=== PATIENT | female | born 1945 | race Caucasian/White ===

== ENCOUNTER → 2017-12-15 | Outpatient (CLI) | payer OTHER | END | disposition home or self-care (01) | LOC: MAMMO 13:26 | DX: Z12.31 Encounter for screening mammogram for malignant neoplasm of breast (principal) | CPT/HCPCS: 77063; 77067 ==

== ENCOUNTER → 2018-06-29 | Outpatient (CLI) | payer OTHER ==
--- NOTE | 2018-06-29 11:08 | RAD ---
MR#: [id number] Date of Study: 06/29/2018 Ordering Physician: ASAEL BRONSON, Referring Physician: RAMA SARAVIA Tech: KERI Agarwal APPROVED REPORT Test Type: Exercise Stress Nurse/Tech: Maday Amezquita R.N. Test Indications: SOB, c/p x 6 months Cardiac History: htn, asthma, DM Medications: See Electronic Medical Record Medical History: See Electronic Medical Record Resting ECG: SR Resting Heart Rate: 75 bpm Resting Blood Pressure: 141/77mmHg Pretest Chest Pain: Typical angina Nurse/Tech Notes S1S2, lungs CTA, pt states she has a little chest pain right in the center of her chest Consent: The procedure was explained to the patient in lay terms. Informed consent was witnessed. Jonathan eout was entered into [facility]. History and Stress Test performed by Joycelyn Gaxiola, RT (R) (N) Stress Symptoms fatigue, SOB, increased chest pain to moderate with activity but back down to baseline of a little by the end of recovery period POST EXERCISE Reason for Termination: Reached target heart rate Target HR: Yes Max HR: 128 bpm 100% of Maximum Predicted HR: 127 bpm Exercise duration: 4:42 min:sec, 1 Stage Exercise capacity: 7.3METs Max Blood Pressure: 190/80mmHg Blood Pressure response to exercise: Normal blood pressure response during stress. Heart Rate response to exercise: wnl Chest Pain: Yes. increased pain from baseline to moderate pain Arrhythmia: No. ST Change: Yes. scant St depression in leads II,III, AVF, V3-V6 > 1MM, scant ST elevation in lead AVR INTERPRETATION Stress EKG Conclusion: Baseline EKG showed sinus rhythm. Non diagnostic changes at peak stress. No arrhythmias. Imaging Protocol IMAGE PROTOCOL: Rest Tc-99m/stress Tc-99m 1 day Rest: Stress: Viability: Radiopharm.Tc99m DsmzhatiwUp14v Sestamibi Dose11.6mCi 33.2mCi Duration 15min. 13min. Img Date 06/29/2018 06/29/2018 Inj-Img Brsk50dhn. 60min. Post-Injection Exercise: 1 minute Rest Admin Site:IV - Right AntecubitalAdministrator:MATTEO Slaughter, ARRT (R)(N) Stress Admin Site: IV - Right AntecubitalAdministrator: MATTEO Slaughter, ARRT (R)(N) STRESS DATA End Diast. Vol.65.0mlLVEDV index BSA35.0ml End Syst. Vol.18.0mlLVESV index BSA10.0ml Myocardial Tmqu279.0gEject. Efylmosv93.0% Stress Scores Regional WT1.00Summed WT5.00 Regional WM0.00Summed WM0.00 Study quality was good. Left Ventricular size was Normal at Rest and Stress. Lung uptake was . Left Ventricular ejection fraction is 72%. The rest and stress images show normal perfusion, normal contraction and thickening. LV Perf. Quant 17 Seg. SSS0.00 17 Seg. SRS0.00 17 Seg. SDS0.00 Stress Defect Extent (% LAD)0.00Rest Defect Extent (% LAD)0.00Rev. Defect Extent (% LAD)0.00 Stress Defect Extent (% LCX) 0.00Rest Defect Extent (% LCX)0.00Rev. Defect Extent (% LCX)0.00 Stress Defect Extent (% RCA)0.00Rest Defect Extent (% RCA)0.00Rev. Defect Extent (% RCA)0.00 Stress Defect Extent (% CHRISTIANO)0.00Rest Defect Extent (% CHRISTIANO)0.00Rev. Defect Extent (% CHRISTIANO)0.00 Conclusion 1. Treadmill exercise cardioisotope stress test did not show any evidence of ischemia or infarct. 2. Normal left ventricular systolic function with ejection fraction calculated at 72%. 3. Low risk for cardiac events. Signed by : Ishaan Mullen, Electronically Approved : 06/29/2018 11:07:41
== END | disposition home or self-care (01) ==
LOC: NM 07:12
PROVIDERS: ATTEND Internal Medicine Cardiovascular Disease
DX: R07.89 Other chest pain (principal); I10 Essential (primary) hypertension; J45.909 Unspecified asthma, uncomplicated; E11.9 Type 2 diabetes mellitus without complications; R06.02 Shortness of breath; R53.83 Other fatigue
CPT/HCPCS: 78452; 93017; 96374; 96376; A9500

== ENCOUNTER → 2018-09-25 | Outpatient (CLI) | payer OTHER ==
[~2018-09-25] MED LIST: ALBUTEROL SULFATE 2.5 MG/3 ML NEBU. NEB ONE
--- NOTE | 2018-09-25 14:17 | RESP ---
DATE OF SERVICE: 09/25/2018 The patient underwent full pulmonary function testing pre and post-bronchodilator. FEV1 to FVC ratio was 70%, FEV1 was 1.69 liters or 71% of predicted. There was no significant bronchodilator response. FVC was 2.39 liters or 78% of predicted. Total lung capacity was elevated, 166% of predicted. Residual volume was elevated. Diffusion capacity was preserved. IMPRESSION: 1. Moderate air flow limitation. 2. No significant bronchodilator response. 3. Marked elevation in residual volume compatible with air trapping. KETURAH MADSEN MD DR: ANDRES/angélica JOB#: [id number] / [id number] ASAEL Mcdaniels MD
== END | disposition home or self-care (01) ==
LOC: PF 08:11
PROVIDERS: ATTEND Internal Medicine Cardiovascular Disease
DX: R06.09 Other forms of dyspnea (principal)
CPT/HCPCS: 94060; 94640; 94729; J7613

== ENCOUNTER 2020-12-06 10:27 | Inpatient (IN) | payer MEDICARE, MEDICAID ==
[~2020-12-06] VITALS: Ht 167.6 cm; Wt 71.0 kg
--- NOTE | 2020-12-06 11:05 | PHYS DOC ---
General Adult EDM: Chief Complaint: ABDOMINAL PAIN HPI: HPI: Patient is a 75 year old female who presents with went to a doctor's appointment today at a clinic that she does not remember the name of it she does not remember the doctor's name but they sent her here for swollen colon and her stomach hurting. She states that she has intermittent diarrhea and constipation, chest pain, bilateral low back pain, shortness of breath, a bdominal pain for the last 2 months. Her last bowel movement was 2 days ago. Patient states she is also had odor in her urine for the last week. She is unable to tell me what the pain feels like but states when she pushes on it it is very tender. Patient has a history of diverticulitis with a bowel suction, high cholesterol, hypertension, appendectomy, cholecystectomy, hand surgeries. She states that she takes a baby aspirin a day. Patient states that she was a former smoker. Patient states that she had a child from a stroke but no family history of cardiac problems. She denies use of alcohol or drugs. She is rating her pain a 7 out of 10 and states it does not radiate. Patient is Khmer-speaking only and diplomatic interpreter/translator phone is used. (ANNA MARIE AMBROCIO APRN) Review of Systems: Review of Systems: Constitutional: Denies fever or chills. [] Eyes: Denies change in visual acuity. [] HENT: Denies nasal congestion or sore throat. [] Respiratory: Denies cough. + shortness of breath. [] Cardiovascular: +chest pain or denies edema. [] GI: + Intermittent abdominal pain, denies nausea, vomiting, bloody stools or +intermittent constipation and + intermittent diarrhea. [] : Denies dysuria. + Foul-smelling urine [] Musculoskeletal: + Bilateral lower back pain or denies joint pain. [] Integument: Denies rash. [] Neurologic: Denies headache, focal weakness or sensory changes. [] Endocrine: Denies polyuria or polydipsia. [] Lymphatic: Denies swollen glands. [] Psychiatric: Denies depression or anxiety. [] (ANNA MARIE AMBROCIO APRN) Heart Score: C/O Chest Pain: Yes HEART Score for Chest Pain: HEART Score for Chest Pain Response (Comments) Value History Slighlty/Non-Suspicious 0 ECG Normal 0 Age > 65 2 Risk Factors 1 or 2 Risk Factors 1 Troponin < Normal Limit 0 Total 3 Risk Factors: Risk Factors: DM, Current or recent (<one month) smoker, HTN, HLP, family history of CAD, obesity. Risk Scores: Score 0 - 3: 2.5% MACE over next 6 weeks - Discharge Home Score 4 - 6: 20.3% MACE over next 6 weeks - Admit for Clinical Observation Score 7 - 10: 72.7% MACE over next 6 weeks - Early Invasive Strategies (ANNA MARIE AMBROCIO APRN) Allergies: Allergies: Allergies Coded Allergies Type Severity Reaction Last Updated Verified codeine Allergy Severe Nausea 09/25/18 Yes (ANNA MARIE AMBROCIO APRN) Physical Exam: PE: Constitutional: Well developed, well nourished, no acute distress, non-toxic appearance. [] HENT: Normocephalic, atraumatic, bilateral external ears normal, oropharynx moist, no oral exudates, nose normal. [] Eyes: PERRLA, EOMI, conjunctiva normal, no discharge. [] Neck: Normal range of motion, no tenderness, supple, no stridor. [] Cardiovascular:Heart rate regular rhythm, no murmur [] Lungs & Thorax: Bilateral breath sounds clear to auscultation [] Abdomen: Bowel sounds normal, soft, left lower quadrant and right upper quadrant tenderness, no masses, no pulsatile masses. [] Skin: Warm, dry, no erythema, no rash. [] Back: No tenderness, no CVA tenderness. [] Extremities: No tenderness, no cyanosis, no clubbing, ROM intact, no edema. [] Neurologic: Alert and oriented X 3, normal motor function, normal sensory function, no focal deficits noted. [] Psychologic: Affect normal, judgement normal, mood normal. [] (ANNA MARIE AMBROCIO APRN) EKG: EKG: [] [address] Lopez as sinus rhythm and no STEMI (ANNA MARIE AMBROCIO APRN) Radiology/Procedures: Radiology/Procedures: [] Impression: [facility] [address] [place] [address] IMAGING REPORT Signed PATIENT: CHARLEEN GAITANACCOUNT: [id number] : 1945 LOCATION: ER AGE: 75 SEX: F EXAM STATUS: REG ER ORD. PHYSICIAN: ANNA MARIE AMBROCIO APRN REASON: chest pain, soa PROCEDURE: PORTABLE CHEST 1V EXAM: Chest, single view. HISTORY: Chest pain. COMPARISON: None. FINDINGS: A frontal view of the chest is obtained. There are suspected bilateral lower lobe predominant atelectasis. There is no infiltrate, pleural effusion or pneumothorax. There is a prominent cardiac silhouette. IMPRESSION: Chronic cardiac silhouette. Suspected bilateral lower lobe atelectasis. Electronically signed by: Joycelyn Mulligan MD (12/06/2020 11:42 AM) [id number] DICTATED and SIGNED BY: JOYCELYN MULLIGAN MD DATE: 12/06/20 [id number] [facility] [address] [place], [place] [id number] IMAGING REPORT Signed PATIENT: CHARLEEN GAITANACCOUNT: [id number] : 1945 LOCATION: ER AGE: 75 SEX: F EXAM STATUS: REG ER ORD. PHYSICIAN: ANNA MARIE AMBROCIO APRN REASON: abd pain, diarrhea, constipation PROCEDURE: CT ABD PELV W/ IV CONTRST ONLY Exam Date: 12/06/2020 11:[address] ABDOMEN+PELVIS W Indication: Reason: abd pain, diarrhea, constipation / Spl. Instructions: omni 300 75ml / History: TECHNIQUE: CT examination of the abdomen and pelvis was performed following the administration of nonionic intravenous contrast. One or more of the following dose reduction techniques were utilized: *Automated exposure control (AEC) *Adjustment of mA and/or kV according to patient size *Use of iterative reconstruction technique *CT scan done according to ALARA, or ALARA/IMAGE GENTLY FINDINGS: The visualized lung bases demonstrate emphysematous changes. Status post cholecystectomy. The liver, spleen, pancreas, adrenal glands and kidneys are normal. Urinary bladder is normal in appearance. Prominent stool is seen in the colon. There is no bowel obstruction or inflammation. A bowel anastomosis is seen in the distal sigmoid colon. No evidence for acute appendicitis. Mild atherosclerotic calcifications are seen. No lymphadenopathy or ascites is seen. Degenerative changes are seen in the spine. IMPRESSION: No evidence of acute intra-abdominal pathology. Prominent stool noted in the colon. Electronically signed by: Boyd Rivera MD (12/06/2020 12:22 PM) [id number] DICTATED and SIGNED BY: BOYD RIVERA MD DATE: 12/06/20 [id number] (ANNA MARIE AMBROCIO APRN) Course & Med Decision Making: Course & Med Decision Making Pertinent Labs and Imaging studies reviewed. (See chart for details) See HPI. Alert and oriented x4. Ambulatory with a steady gait. Skin pink warm and dry. No extremity edema. Abdominal tenderness to left lower quadrant and right upper quadrant but otherwise soft. No CVA tenderness. Lungs are clear to auscultation all lobes. Vital signs are within normal limits. CT abdomen pelvis shows no acute findings. Chest x-ray shows lower lobe atelectasis. Urinalysis does not show infection but I would have treated her with Rocephin due to her having symptoms. Patient's heart score is a 3. Due to the patient's age and continued chest pain and shortness of breath patient will be admitted for observation for chest pain. [] (ANNA MARIE AMBROCIO APRN) Dragon Disclaimer: Dragyohan Disclaimer: This electronic medical record was generated, in whole or in part, using a voice recognition dictation system. (ANNA MARIE AMBROCIO APRN) Departure Departure Impression: Primary Impression: Chest pain Qualified Codes: R07.9 - Chest pain, unspecified Additional Impressions: Shortness of breath Abdominal pain Qualified Codes: R10.9 - Unspecified abdominal pain Disposition: ADMITTED INPATIENT Admitting Physician: JACOBY (ANNA MARIE AMBROCIO APRN) Condition: STABLE Referrals: ELIZABETH KUNZ D.O. (PCP) Attending Co-Sign Attending Co-Sign The patient was seen and interviewed as well as examined at the bedside. The chart was reviewed. The case was discussed. Agree with the plan of care. (KYLE LOPEZ DO) ANNA MARIE AMBROCIO APRN Dec 06, 2020 11:04 KYLE LOPEZ DO Dec 06, 2020 14:05
[2020-12-06] MEDS ORDERED: fentaNYL PF VIAL 100 MCG/2 ML VIAL IVP ONE ×2 (11:15→16:00)
[2020-12-06] MEDS ORDERED: IV NORMAL SALINE 1000ML BAG 1,000 ML IV SCH (11:15)
[2020-12-06] MEDS ORDERED: FAMOTIDINE 20 MG/2 ML VIAL IVP ONE (11:15)
[2020-12-06 11:23] LABS: BASO # 0.1 x10^3/uL (0.0-0.2); BASO % 1 % (0-3); EOS # 0.3 x10^3/uL (0.0-0.7); EOS % 5 % (0-3); HEMATOCRIT 36.8 % (36.0-47.0); HEMOGLOBIN 11.9 g/dL (12.0-15.5); LYMPH # 1.6 x10^3/uL (1.0-4.8); LYMPH % 29 % (24-48); MEAN CORPUSCULAR HEMOGLOBIN 27 pg (25-35); MEAN CORPUSCULAR HGB CONC 32 g/dL (31-37); MEAN CORPUSCULAR VOLUME 82 fL (79-100); MONO # 0.4 x10^3/uL (0.0-1.1); MONO % 8 % (0-9); NEUT % 56 % (31-73); PLATELET COUNT 217 x10^3/uL (140-400); RED BLOOD COUNT 4.48 x10^6/uL (3.50-5.40); RED CELL DISTRIBUTION WIDTH 16.3 % (11.5-14.5); WHITE BLOOD COUNT 5.4 x10^3/uL (4.0-11.0)
[2020-12-06 11:24] LABS: BILIRUBIN,URINE NEGATIVE (NEG); CLARITY,URINE CLEAR; COLOR,URINE YELLOW; NITRITE,URINE NEGATIVE (NEG); PH,URINE 7.5 (<5.0-8.0); PROTEIN,URINE NEGATIVE (NEG-TRACE); UROBILINOGEN,URINE 0.2 mg/dL (0.2 mg/dL)
[2020-12-06 11:31] LABS: BACTERIA,URINE 0 /HPF (0-FEW); RBC,URINE 0 /HPF (0-2); WBC,URINE OCC /HPF (0-4)
[2020-12-06 11:39] LABS: CALCIUM 8.9 mg/dL (8.5-10.1); CREATININE 0.8 mg/dL (0.6-1.0); GFR 70.3; POTASSIUM 4.6 mmol/L (3.5-5.1)
[2020-12-06 11:41] LABS: PROTHROMBIN TIME PATIENT 13.1 SEC (11.7-14.0)
--- NOTE | 2020-12-06 11:44 | RAD ---
EXAM: Chest, single view. HISTORY: Chest pain. COMPARISON: None. FINDINGS: A frontal view of the chest is obtained. There are suspected bilateral lower lobe predomina nt atelectasis. There is no infiltrate, pleural effusion or pneumothorax. There is a prominent cardia c silhouette. IMPRESSION: Chronic cardiac silhouette. Suspected bilateral lower lobe atelectasis. Electronically signed by: Joycelyn Turner MD (12/06/2020 11:42 AM) [id number]
[2020-12-06 11:46] LABS: ALBUMIN 3.7 g/dL (3.4-5.0); ALBUMIN/GLOBULIN RATIO 1.2 (1.0-1.7); TOTAL BILIRUBIN 0.3 mg/dL (0.2-1.0); TOTAL PROTEIN 6.7 g/dL (6.4-8.2)
[2020-12-06] MEDS ORDERED: IOHEXOL 300 MG/ML 100ML VIAL. IV ONE (12:00)
[2020-12-06] MEDS ORDERED: CONTRAST GIVEN. MC PRN (12:00)
--- NOTE | 2020-12-06 12:24 | RAD ---
Exam Date: 12/06/2020 11:[address] ABDOMEN+PELVIS W Indication: Reason: abd pain, diarrhea, constipation / Spl. Instructions: omni 300 75ml / History: TECHNIQUE: CT examination of the abdomen and pelvis was performed following the administration of no nionic intravenous contrast. One or more of the following dose reduction techniques were utilized: *Automated exposure control (AEC) *Adjustment of mA and/or kV according to patient size *Use of iterative reconstruction technique *CT scan done according to ALARA, or ALARA/IMAGE GENTLY FINDINGS: The visualized lung bases demonstrate emphysematous changes. Status post cholecystectomy. The liver, spleen, pancreas, adrenal glands and kidneys are normal. Urinary bladder is normal in appearance. Prominent stool is seen in the colon. There is no bowel obstruction or inflammation. A bowel anastomo sis is seen in the distal sigmoid colon. No evidence for acute appendicitis. Mild atherosclerotic calcifications are seen. No lymphadenopathy or ascites is seen. Degenerative changes are seen in the spine. IMPRESSION: No evidence of acute intra-abdominal pathology. Prominent stool noted in the colon. Electronically signed by: Reza Rivera MD (12/06/2020 12:22 PM) [id number]
[2020-12-06] MEDS ORDERED: cefTRIAXone IV Push 1 GM VIAL. IVP ONE (13:30)
--- NOTE | 2020-12-06 13:49 | EKG ---
[facility] [address] [place] [address] Test Date: 2020-12-06 Test Time: 10:51:58 Pat Name: CHARLEEN GAITAN Department: Room: Gender: F Assistant Hall Director: : 1945 Requested By: ANNA MARIE AMBROCIO Order Number: [id number] Reading MD: Measurements Intervals [place] Rate: 76 P: 52 UT: 152 QRS: 4 QRSD: 106 T: 51 QT: 392 QTc: 440 Interpretive Statements SINUS RHYTHM OTHERWISE NORMAL ECG RI6.02 No previous ECG available for comparison
[2020-12-06] MEDS ORDERED: ONDANSETRON PF 4 MG/2 ML VIAL. IV PRN (14:00)
[2020-12-06] MEDS ORDERED: ASPIRIN 325 MG TABLET PO ONE (14:00)
[2020-12-06 16:20] VITALS: BP 183/89
--- NOTE | 2020-12-06 16:20 | NUR ---
Arrived to unit by cart. Unable to ambulate from doorway to bathroom. Sat up on cart and got dizzy and lade back down. Terence CHEUNG from ER stated just gave patient Dilaudid prior to transfer. Wheeled the cart into room and transferred pt to the bed. Change pt to gown and used bedpan to void. Side rails up x's 2 with call light in reach.
--- NOTE | 2020-12-06 16:58 | PDOC1 ---
History and Physical Date of Admission Date of Admission DATE: 12/06/20 TIME: 16:52 Identification/Chief Complaint Chief Complaint abd pain Source Source: Chart review, Patient History of Present Illness History of Present Illness Ms. Jose, is a 75 year old female who presents with went to a doctor's appointment today at a clinic that she does not remember the name of it she does not remember the doctor's name but they sent her here for swollen colon and her stomach hurting. She states that she has intermittent diarrhea and constipation, chest pain, bilateral low back pain, shortness of breath, abdominal pain for the last 2 months. Her last bowel movement was 2 days ago. Patient states she is also had odor in her urine for the last week. She is unable to tell me what the pain feels like but states when she pushes on it it is very tender. Patient has a history of diverticulitis with a bowel suction, high cholesterol, hypertension, appendectomy, cholecystectomy, hand surgeries. She states that she takes a baby aspirin a day. Patient states that she was a former smoker. Patient states that she had a child from a stroke but no family history of cardiac problems. She denies use of alcohol or drugs. She is rating her pain a 7 out of 10 and states it does not radiate. Patient is Albanian-speaking only and site interpreter phone is used. Past Medical History Past Medical History chronic back pain, months Cardiovascular: No pertinent hx Pulmonary: No pertinent hx Endocrine: Diabetes Past Surgical History Past Surgical History: No pertinent history Family History Family History: No Significant Social History Smoke: No ALCOHOL: none Drugs: None Current Problem List Problem List Problems Medical Problems: (1) Abdominal pain Status: Acute (2) Chest pain Status: Acute (3) Shortness of breath Status: Acute Current Medications Current Medications Current Medications Sodium Chloride 1,000 ml @ 1,000 mls/hr Q1H IV Last administered on 12/06/20at 11:20; Start 12/06/20 at 11:15; Stop 12/06/20 at 12:14; Status DC Fentanyl Citrate (Fentanyl 2ml Vial) 25 mcg 1X ONCE IVP Last administered on 12/06/20at 11:22; Start 12/06/20 at 11:15; Stop 12/06/20 at 11:16; Status DC Famotidine (Pepcid Vial) 20 mg 1X ONCE IVP Last administered on 12/06/20at 11:21; Start 12/06/20 at 11:15; Stop 12/06/20 at 11:16; Status DC Iohexol (Omnipaque 300 Mg/ml) 75 ml 1X ONCE IV Last administered on 12/06/20at 11:54; Start 12/06/20 at 12:00; Stop 12/06/20 at 12:01; Status DC Info (CONTRAST GIVEN -- Rx MONITORING) 1 each PRN DAILY PRN MC SEE COMMENTS; Start 12/06/20 at 12:00; Stop 12/08/20 at 11:59 Ceftriaxone Sodium (Rocephin) 1 gm 1X ONCE IVP Last administered on 12/06/20at 13:53; Start 12/06/20 at 13:30; Stop 12/06/20 at 13:31; Status DC Aspirin (Hoda Aspirin) 325 mg 1X ONCE PO Last administered on 12/06/20at 13:58; Start 12/06/20 at 14:00; Stop 12/06/20 at 14:01; Status DC Ondansetron HCl (Zofran) 4 mg PRN Q8HRS PRN IV NAUSEA/VOMITING; Start 12/06/20 at 14:00; Stop 12/07/20 at 13:59 Fentanyl Citrate (Fentanyl 2ml Vial) 25 mcg 1X ONCE IVP Last administered on 12/06/20at 15:59; Start 12/06/20 at 16:00; Stop 12/06/20 at 16:01; Status DC Allergies Allergies: Coded Allergies: codeine (Verified Allergy, Severe, Nausea, 09/25/18) vomitting ROS General: YES: Fatigue; No: Chills, Night Sweats, Malaise, Appetite, Other PSYCHOLOGICAL ROS: No: Anxiety, Behavioral Disorder, Concentration difficultie, Decreased libido, Depression, Disorientation, Hallucinations, Hostility, Irritablity, Memory difficulties, Mood Swings, Obsessive thoughts, Physical abuse, Sexual abuse, Sleep disturbances, Suicidal ideation, Other Eyes: No Blurry vision, No Decreased vision, No Double vision, No Dry eyes, No Excessive tearing, No Eye Pain, No Itchy Eyes, No Loss of vision, No Photophobia, No Scotomata, No Uses contacts, No Uses glasses, No Other HEENT: No: Heacaches, Visual Changes, Hearing change, Nasal congestion, Nasal discharge, Oral lesions, Sinus pain, Sore Throat, Epistaxis, Sneezing, Snoring, Tinnitus, Vertigo, Vocal changes, Other Respiratory: YES: Cough; No: Hemoptysis, Orthopnea, Pleuritic Pain, Shortness of breath, SOB with excertion, Sputum Changes, Stridor, Tachypnea, Wheezing, Other Cardiovascular: No Chest Pain, No Palpitations, No Orthopnea, No Paroxysmal Noc. Dyspnea, No Edema, No Lt Headedness, No Other Gastrointestinal: Yes Nausea, Yes Abdominal Pain Genitourinary: No Dysuria, No Frequency, No Incontinence, No Hematuria, No Retention, No Discharge, No Urgency, No Pain, No Flank Pain, No Other, No , No , No , No , No , No , No Musculoskeletal: Yes Joint Pain, Yes Joint Stiffness (back pain) Neurological: No Behavorial Changes, No Bowel/Bladder ControlChng, No Confusion, No Dizziness, No Gait Disturbance, No Headaches, No Impaired Coord/balance, No Memory Loss, No Numbness/Tingling, No Seizures, No Speech Problems, No Tremors, No Visual Changes, No Weakness, No Other Skin: Yes Dry Skin; No Eczema, No Hair Changes, No Lumps, No Mole Changes, No Mottling, No Nail Changes, No Pruritus, No Rash, No Skin Lesion Changes, No Other, No Acne Physical Exam General: Cooperative, No acute distress HEENT: Atraumatic, EOMI Lungs: Clear to auscultation Heart: S1S2, RRR Abdomen: Soft, Other (tender, LLQ) Rectal Exam: not examined Extremities: No edema Skin: No significant lesion Neuro: Normal speech, Normal tone, Cranial nerves 3-12 NL Psych/Mental Status: Mood NL Vitals Vitals Vital Signs Date Time Temp Pulse Resp B/P (MAP) Pulse Ox O2 Delivery O2 Flow Rate FiO2 12/06/20 15:59 20 97 Room Air 12/06/20 13:56 68 182/88 (119) 12/06/20 10:33 98.5 98.5 Labs Labs Laboratory Tests Test 12/06/20 10:35 12/06/20 11:11 Urine Collection Type Unknown Urine Color Yellow Urine Clarity Clear Urine pH 7.5 (<5.0-8.0) Urine Specific [place] 1.020 (1.000-1.030) Urine Protein Negative mg/dL (NEG-TRACE) Urine Glucose (UA) Negative mg/dL (NEG) Urine Ketones (Stick) Negative mg/dL (NEG) Urine Blood Negative (NEG) Urine Nitrite Negative (NEG) Urine Bilirubin Negative (NEG) Urine Urobilinogen Dipstick 0.2 mg/dL (0.2 mg/dL) Urine Leukocyte Esterase Trace (NEG) Urine RBC 0 /HPF (0-2) Urine WBC Occ /HPF (0-4) Urine Squamous Epithelial Cells Few /LPF Urine Bacteria 0 /HPF (0-FEW) White Blood Count 5.4 x10^3/uL (4.0-11.0) Red Blood Count 4.48 x10^6/uL (3.50-5.40) Hemoglobin 11.9 g/dL (12.0-15.5) Hematocrit 36.8 % (36.0-47.0) Mean Corpuscular Volume 82 fL (79-100) Mean Corpuscular Hemoglobin 27 pg (25-35) Mean Corpuscular Hemoglobin Concent 32 g/dL (31-37) Red Cell Distribution Width 16.3 % (11.5-14.5) Platelet Count 217 x10^3/uL (140-400) Neutrophils (%) (Auto) 56 % (31-73) Lymphocytes (%) (Auto) 29 % (24-48) Monocytes (%) (Auto) 8 % (0-9) Eosinophils (%) (Auto) 5 % (0-3) Basophils (%) (Auto) 1 % (0-3) Neutrophils # (Auto) 3.0 x10^3/uL (1.8-7.7) Lymphocytes # (Auto) 1.6 x10^3/uL (1.0-4.8) Monocytes # (Auto) 0.4 x10^3/uL (0.0-1.1) Eosinophils # (Auto) 0.3 x10^3/uL (0.0-0.7) Basophils # (Auto) 0.1 x10^3/uL (0.0-0.2) Prothrombin Time 13.1 SEC (11.7-14.0) Prothromb Time International Ratio 1.0 (0.8-1.1) D-Dimer (Violette) 0.40 ug/mlFEU (0.00-0.50) Sodium Level 143 mmol/L (136-145) Potassium Level 4.6 mmol/L (3.5-5.1) Chloride Level 106 mmol/L (98-107) Carbon Dioxide Level 28 mmol/L (21-32) Anion Gap 9 (6-14) Blood Urea Nitrogen 16 mg/dL (7-20) Creatinine 0.8 mg/dL (0.6-1.0) Estimated GFR (Cockcroft-Gault) 70.3 BUN/Creatinine Ratio 20 (6-20) Glucose Level 166 mg/dL (70-99) Calcium Level 8.9 mg/dL (8.5-10.1) Total Bilirubin 0.3 mg/dL (0.2-1.0) Aspartate Amino Transf (AST/SGOT) 23 U/L (15-37) Alanine Aminotransferase (ALT/SGPT) 25 U/L (14-59) Alkaline Phosphatase 102 U/L (46-116) Troponin I Quantitative < 0.017 ng/mL (0.000-0.055) TG-Dau-R-Type Natriuretic Peptide 178 pg/mL (0-124) Total Protein 6.7 g/dL (6.4-8.2) Albumin 3.7 g/dL (3.4-5.0) Albumin/Globulin Ratio 1.2 (1.0-1.7) Lipase 195 U/L (73-393) Laboratory Tests Test 12/06/20 10:35 12/06/20 11:11 Urine Collection Type Unknown Urine Color Yellow Urine Clarity Clear Urine pH 7.5 (<5.0-8.0) Urine Specific [place] 1.020 (1.000-1.030) Urine Protein Negative mg/dL (NEG-TRACE) Urine Glucose (UA) Negative mg/dL (NEG) Urine Ketones (Stick) Negative mg/dL (NEG) Urine Blood Negative (NEG) Urine Nitrite Negative (NEG) Urine Bilirubin Negative (NEG) Urine Urobilinogen Dipstick 0.2 mg/dL (0.2 mg/dL) Urine Leukocyte Esterase Trace (NEG) Urine RBC 0 /HPF (0-2) Urine WBC Occ /HPF (0-4) Urine Squamous Epithelial Cells Few /LPF Urine Bacteria 0 /HPF (0-FEW) White Blood Count 5.4 x10^3/uL (4.0-11.0) Red Blood Count 4.48 x10^6/uL (3.50-5.40) Hemoglobin 11.9 g/dL (12.0-15.5) Hematocrit 36.8 % (36.0-47.0) Mean Corpuscular Volume 82 fL (79-100) Mean Corpuscular Hemoglobin 27 pg (25-35) Mean Corpuscular Hemoglobin Concent 32 g/dL (31-37) Red Cell Distribution Width 16.3 % (11.5-14.5) Platelet Count 217 x10^3/uL (140-400) Neutrophils (%) (Auto) 56 % (31-73) Lymphocytes (%) (Auto) 29 % (24-48) Monocytes (%) (Auto) 8 % (0-9) Eosinophils (%) (Auto) 5 % (0-3) Basophils (%) (Auto) 1 % (0-3) Neutrophils # (Auto) 3.0 x10^3/uL (1.8-7.7) Lymphocytes # (Auto) 1.6 x10^3/uL (1.0-4.8) Monocytes # (Auto) 0.4 x10^3/uL (0.0-1.1) Eosinophils # (Auto) 0.3 x10^3/uL (0.0-0.7) Basophils # (Auto) 0.1 x10^3/uL (0.0-0.2) Prothrombin Time 13.1 SEC (11.7-14.0) Prothromb Time International Ratio 1.0 (0.8-1.1) D-Dimer (Violette) 0.40 ug/mlFEU (0.00-0.50) Sodium Level 143 mmol/L (136-145) Potassium Level 4.6 mmol/L (3.5-5.1) Chloride Level 106 mmol/L (98-107) Carbon Dioxide Level 28 mmol/L (21-32) Anion Gap 9 (6-14) Blood Urea Nitrogen 16 mg/dL (7-20) Creatinine 0.8 mg/dL (0.6-1.0) Estimated GFR (Cockcroft-Gault) 70.3 BUN/Creatinine Ratio 20 (6-20) Glucose Level 166 mg/dL (70-99) Calcium Level 8.9 mg/dL (8.5-10.1) Total Bilirubin 0.3 mg/dL (0.2-1.0) Aspartate Amino Transf (AST/SGOT) 23 U/L (15-37) Alanine Aminotransferase (ALT/SGPT) 25 U/L (14-59) Alkaline Phosphatase 102 U/L (46-116) Troponin I Quantitative < 0.017 ng/mL (0.000-0.055) UC-Twu-V-Type Natriuretic Peptide 178 pg/mL (0-124) Total Protein 6.7 g/dL (6.4-8.2) Albumin 3.7 g/dL (3.4-5.0) Albumin/Globulin Ratio 1.2 (1.0-1.7) Lipase 195 U/L (73-393) VTE Prophylaxis Ordered VTE Prophylaxis Devices: No VTE Pharmacological Prophylaxi: Yes Assessment/Plan Assessment/Plan acute lower left abdominal pain, not groin poss constipation, colitis, CT OK chronic back pain DM2, weakness Justifications for Admission Other Justification BARRINGTON HANNA MD Dec 06, 2020 16:58
[2020-12-06] MEDS ORDERED: POLYETHYLENE GLYCOL 3350 17 GM PACKET. PO ONE (17:00)
--- NOTE | 2020-12-06 17:00 | NUR ---
Feeling better and is hungry. ADA diet tray given and ate 100% of dinner. No c/o at this time. Ambulated to bathroom with standby assist. Son at bedside. Cont. monitor.
--- NOTE | 2020-12-06 17:33 | EKG ---
[facility] [address] [place] [address] Test Date: 2020-12-06 Test Time: 17:32:58 Pat Name: CHARLEEN GAITAN Department: Room: 201 1 Gender: F All Source Intelligence Analyst: JANIA : 1945 Requested By: ANNA MARIE AMBROCIO Order Number: [id number] Reading MD: Measurements Intervals [place] Rate: 68 P: 41 [place]: 156 QRS: 0 QRSD: 92 T: 34 QT: 410 QTc: 441 Interpretive Statements SINUS RHYTHM LEFTWARD AXIS NO SPECIFIC ECG ABNORMALITIES RI6.01 Compared to ECG 12/06/2020 10:51:58 Left-axis deviation now present
[2020-12-06] MEDS ORDERED: LEVO-101 PO (18:36)
[2020-12-06] MEDS ORDERED: LOSA25TA PO (18:36)
[2020-12-06] MEDS ORDERED: VENTOLIN HFA18 GM INH (18:36)
[2020-12-06] MEDS ORDERED: GABA300C18 PO (18:36)
[2020-12-06] MEDS ORDERED: METF10007 PO (18:36)
[2020-12-06] MEDS ORDERED: INSU100V13 SQ (18:36)
[2020-12-06] MEDS ORDERED: ASPI81TA59 PO (18:36)
[2020-12-06] MEDS ORDERED: SITA100T PO (18:36)
[2020-12-06] MEDS ORDERED: ATOR10TA PO (18:36)
[2020-12-06 19:13] VITALS: BP 139/64
--- NOTE | 2020-12-06 19:40 | NUR ---
Pt in bed with c/o pain to right lower quadrant, assessment completed vss poc explained will medicate pt and resume care call light placed in reach.
[2020-12-06] MEDS ORDERED: GABAPENTIN 300 MG CAPSULE. PO PRN (19:45)
[2020-12-06] MEDS ORDERED: NON FORMULARY ITEM (Albuterol Sulfate (Ventolin Hfa Inhaler) 2 PUFF) INH PRN (19:45)
[2020-12-06] MEDS ORDERED: ACETAMINOPHEN 325 MG TABLET. PO PRN (20:00)
[2020-12-06] MEDS ORDERED: ALBUTEROL SULFATE 2.5 MG/3 ML NEBU. NEB PRN (20:15)
[2020-12-06] MEDS ORDERED: ATORVASTATIN CALCIUM 10 MG TABLET. PO SCH (21:00)
[2020-12-06] MEDS ORDERED: INSULIN GLARGINE SYRINGE. SQ SCH (21:00)
[2020-12-06] MEDS: GABAPENTIN 400 MG CAPSULE. PO PRN (21:03)
[2020-12-06] MEDS: DOCUSATE SODIUM 100 MG CAPSULE. PO SCH (21:03)
[2020-12-06 23:08] VITALS: BP 144/71
[2020-12-07 03:07] VITALS: BP 129/65
[2020-12-07] MEDS ORDERED: LEVOTHYROXINE 100 MCG TABLET PO SCH (06:00)
[2020-12-07 07:00] VITALS: BP 116/71
[2020-12-07] MEDS ORDERED: ASPIRIN CHEWABLE 81 MG TABLET. PO SCH (09:00)
[2020-12-07] MEDS ORDERED: LINAGLIPTIN 5 MG TABLET PO SCH (09:00)
[2020-12-07] MEDS ORDERED: LOSARTAN POTASSIUM 25 MG TABLET. PO SCH (09:00)
[2020-12-07] MEDS: DOCUSATE SODIUM 100 MG CAPSULE. PO SCH (09:08)
[2020-12-07] MEDS: GABAPENTIN 400 MG CAPSULE. PO PRN (09:18)
[2020-12-07] MEDS ORDERED: LIDO:MAALOX 1:1 20 ML SINGLE DOSE. SWSW ONE (10:30)
[2020-12-07] MEDS ORDERED: POLYETHYLENE GLYCOL 3350 17 GM PACKET. PO ONE ×2 (10:45→11:00)
[2020-12-07] MEDS ORDERED: PANTOPRAZOLE 40 MG TABLET.DR. PO ONE (10:45)
--- NOTE | 2020-12-07 10:46 | PDOC2 ---
RAPHAEL RODRIGUEZ POSTIE 12/07/20 1046: CARDIAC CONSULT DATE OF CONSULT Date of Consult DATE: 12/07/20 TIME: 1200 REASON FOR CONSULT Reason for Consult: Chest pain REFERRING PHYSICIAN Referring Physician: Aaron SOURCE Source: Chart review, Patient HISTORY OF PRESENT ILLNESS HISTORY OF PRESENT ILLNESS This is a pleasant 75 yo female admitted for complains of mainly abdominal pain. Also noted with chest pain and some SOA. Her abdominal pain mainly on the right side but denies any nausea or vomiting or diarrhea. She described her CP as pressure and nonradiating midchest. She does have some SOA but not all the time she said. Denies any palpitations, jaw tightness. No prior covid-19 exposure, no anosmia or ageusia. No recent falls or injury. She does get dizzy at times but no passing out. 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 She had the same symptoms from about 2012 when she had LHC at [facility] which she reported that it was normal. She does have GERD and possibly has PPI at home. PAST MEDICAL HISTORY Cardiovascular: HTN, Hyperlipidemia Pulmonary: Asthma CENTRAL NERVOUS SYSTEM: Other (no pertinent history) GI: GERD Heme/Onc: No pertinent hx Hepatobiliary: No pertinent hx, Cholelithiasis Psych: No pertinent hx Musculoskeletal: Osteoarthritis Rheumatologic: No pertinent hx Infectious disease: No pertinent hx ENT: No pertinent hx Renal/: No pertinent hx Endocrine: Diabetes, Hypothyroidism Dermatology: No pertinent hx PAST SURGICAL HISTORY Past Surgical History: Appendectomy, Cholecystectomy, Colon Resection, Other ([facility] 13 yrs ago) FAMILY HISTORY Family History noncontributory SOCIAL HISTORY Smoke: No ALCOHOL: none Drugs: None Lives: Alone CURRENT MEDICATIONS CURRENT MEDICATIONS Current Medications Medications (Trade) Dose Ordered Sig/Mariam Route PRN Reason Start Time Stop Time Status Last Admin Dose Admin Sodium Chloride 1,000 ml @ 1,000 mls/hr Q1H IV 12/06/20 11:15 12/06/20 12:14 DC 12/06/20 11:20 Fentanyl Citrate (Fentanyl 2ml Vial) 25 mcg 1X ONCE IVP 12/06/20 11:15 12/06/20 11:16 DC 12/06/20 11:22 Famotidine (Pepcid Vial) 20 mg 1X ONCE IVP 12/06/20 11:15 12/06/20 11:16 DC 12/06/20 11:21 Iohexol (Omnipaque 300 Mg/ml) 75 ml 1X ONCE IV 12/06/20 12:00 12/06/20 12:01 DC 12/06/20 11:54 Ceftriaxone Sodium (Rocephin) 1 gm 1X ONCE IVP 12/06/20 13:30 12/06/20 13:31 DC 12/06/20 13:53 Aspirin (Hoda Aspirin) 325 mg 1X ONCE PO 12/06/20 14:00 12/06/20 14:01 DC 12/06/20 13:58 Fentanyl Citrate (Fentanyl 2ml Vial) 25 mcg 1X ONCE IVP 12/06/20 16:00 12/06/20 16:01 DC 12/06/20 15:59 Docusate Sodium (Colace) 100 mg DAILY PO 12/06/20 17:00 12/07/20 09:08 Polyethylene Glycol (miraLAX PACKET) 17 gm 1X ONCE PO 12/06/20 17:00 12/06/20 17:01 DC 12/06/20 21:03 Aspirin (Aspirin Chewable) 81 mg DAILY PO 12/07/20 09:00 12/07/20 09:08 Atorvastatin Calcium (Lipitor) 10 mg QHS PO 12/06/20 21:00 12/06/20 21:03 Levothyroxine Sodium (Synthroid) 100 mcg DAILY06 PO 12/07/20 06:00 12/07/20 06:34 Losartan Potassium (Cozaar) 25 mg DAILY PO 12/07/20 09:00 12/07/20 09:11 Insulin Glargine (Lantus Syringe) 28 unit QHS SQ 12/06/20 21:00 12/06/20 21:07 Linagliptin (Tradjenta) 5 mg DAILY PO 12/07/20 09:00 12/07/20 09:08 Acetaminophen (Tylenol) 650 mg PRN Q6HRS PRN PO MILD PAIN / TEMP > 100.3'F 12/06/20 20:00 12/06/20 21:03 Gabapentin (Neurontin) 800 mg PRN BID PRN PO NEUROPATHIC PAIN 12/06/20 20:00 12/07/20 09:18 ALLERGIES ALLERGIES: Coded Allergies: codeine (Verified Adverse Reaction, Severe, Nausea/vomiting, 12/07/20) ROS Review of System 14 point ROS evaluated with pertinent positives noted per HPI PHYSICAL EXAM General: Alert, Oriented X3, Cooperative, No acute distress HEENT: Atraumatic, Mucous membr. moist/pink Lungs: Clear to auscultation, Normal air movement Heart: Regular rate (SR), Normal S1, Normal S2, No murmurs Abdomen: Soft, No tenderness Extremities: No cyanosis, No edema Skin: No breakdown, No significant lesion Neuro: Normal speech, Sensation intact Psych/Mental Status: Mental status NL, Mood NL MUSCULOSKELETAL: Osteoarthritic changes both hands VITALS/I&O VITALS/I&O: Vital Signs Date Time Temp Pulse Resp B/P (MAP) Pulse Ox O2 Delivery O2 Flow Rate FiO2 12/07/20 09:11 66 124/66 12/07/20 07:00 97.8 18 96 Room Air 97.8 I & O 12/06/20 12/06/20 12/07/20 15:00 23:00 07:00 Intake Total 1000 ml 180 ml 350 ml Output Total 1725 ml Balance 1000 ml -1545 ml 350 ml LABS Lab: Laboratory Tests Test 12/06/20 10:35 12/06/20 11:11 12/06/20 16:59 12/06/20 21:01 Urine Collection Type Unknown Urine Color Yellow Urine Clarity Clear Urine pH 7.5 (<5.0-8.0) Urine Specific [place] 1.020 (1.000-1.030) Urine Protein Negative mg/dL (NEG-TRACE) Urine Glucose (UA) Negative mg/dL (NEG) Urine Ketones (Stick) Negative mg/dL (NEG) Urine Blood Negative (NEG) Urine Nitrite Negative (NEG) Urine Bilirubin Negative (NEG) Urine Urobilinogen Dipstick 0.2 mg/dL (0.2 mg/dL) Urine Leukocyte Esterase Trace (NEG) Urine RBC 0 /HPF (0-2) Urine WBC Occ /HPF (0-4) Urine Squamous Epithelial Cells Few /LPF Urine Bacteria 0 /HPF (0-FEW) White Blood Count 5.4 x10^3/uL (4.0-11.0) Red Blood Count 4.48 x10^6/uL (3.50-5.40) Hemoglobin 11.9 g/dL (12.0-15.5) L Hematocrit 36.8 % (36.0-47.0) Mean Corpuscular Volume 82 fL (79-100) Mean Corpuscular Hemoglobin 27 pg (25-35) Mean Corpuscular Hemoglobin Concent 32 g/dL (31-37) Red Cell Distribution Width 16.3 % (11.5-14.5) H Platelet Count 217 x10^3/uL (140-400) Neutrophils (%) (Auto) 56 % (31-73) Lymphocytes (%) (Auto) 29 % (24-48) Monocytes (%) (Auto) 8 % (0-9) Eosinophils (%) (Auto) 5 % (0-3) H Basophils (%) (Auto) 1 % (0-3) Neutrophils # (Auto) 3.0 x10^3/uL (1.8-7.7) Lymphocytes # (Auto) 1.6 x10^3/uL (1.0-4.8) Monocytes # (Auto) 0.4 x10^3/uL (0.0-1.1) Eosinophils # (Auto) 0.3 x10^3/uL (0.0-0.7) Basophils # (Auto) 0.1 x10^3/uL (0.0-0.2) Prothrombin Time 13.1 SEC (11.7-14.0) Prothrombin Time INR 1.0 (0.8-1.1) D-Dimer (Violette) 0.40 ug/mlFEU (0.00-0.50) Sodium Level 143 mmol/L (136-145) Potassium Level 4.6 mmol/L (3.5-5.1) Chloride Level 106 mmol/L (98-107) Carbon Dioxide Level 28 mmol/L (21-32) Anion Gap 9 (6-14) Blood Urea Nitrogen 16 mg/dL (7-20) Creatinine 0.8 mg/dL (0.6-1.0) Estimated GFR (Cockcroft-Gault) 70.3 BUN/Creatinine Ratio 20 (6-20) Glucose Level 166 mg/dL (70-99) H Calcium Level 8.9 mg/dL (8.5-10.1) Total Bilirubin 0.3 mg/dL (0.2-1.0) Aspartate Amino Transferase (AST) 23 U/L (15-37) Alanine Aminotransferase (ALT) 25 U/L (14-59) Alkaline Phosphatase 102 U/L (46-116) Troponin I Quantitative < 0.017 ng/mL (0.000-0.055) RD-Wda-U-Type Natriuretic Peptide 178 pg/mL (0-124) H Total Protein 6.7 g/dL (6.4-8.2) Albumin 3.7 g/dL (3.4-5.0) Albumin/Globulin Ratio 1.2 (1.0-1.7) Lipase 195 U/L (73-393) Glucose (Fingerstick) 110 mg/dL (70-99) H 182 mg/dL (70-99) H Test 12/07/20 07:13 Glucose (Fingerstick) 142 mg/dL (70-99) H Laboratory Tests 12/06/20 11:11 Laboratory Tests 12/06/20 11:11 ASSESSMENT/PLAN ASSESSMENT/PLAN 1. Chest pain: possibly GI. DDIMER nml. pain better after GI cocktail 2. DM2: per PCP 3. Abdominal pain: possibly from constipation 4. HLP 5. Hypothyroidism: on replacement 6. HTN: controlled Recommendations 1. TTE, TSH and FLP 2. Obtain MPI report from [facility] 3. GI cocktail resume home PPI. x1 miralax. Diet modification 4. Continue ASA, home statin and BP meds ALMA RABAGO MD 12/07/202046: CARDIAC CONSULT ASSESSMENT/PLAN ASSESSMENT/PLAN Patient seen and examined. 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 CP with atypical features and most prob GI etiology - AL ruled out 2D echo showed normal LVF without any WMA We will obtain records of stress test from [facility] and make further recommendations Thank you for your consultation RAPHAEL RODRIGUEZ APRN Dec 07, 2020 10:46 ALMA RABAGO MD Dec 07, 2020 20:47
[2020-12-07 11:00] VITALS: BP 132/73
[2020-12-07] MEDS ORDERED: MAGNESIUM HYDROXIDE 2,400 MG/30 ML ORAL.SUSP. PO ONE (11:00)
[2020-12-07 12:24] LABS: CHOLESTEROL/HDL RATIO 2.9
--- NOTE | 2020-12-07 12:43 | NUR ---
SS following for discharge planning. SS reviewed pt chart and discussed with pt RN. Pt is from home and is currently on room air. Pt on IV Rocephin. Per RN, pt needs to have BM. Cardiology consulted. SS will continue to follow for discharge planning.
[2020-12-07] MEDS ORDERED: DOCU-153 PO (12:46)
[2020-12-07] MEDS ORDERED: cefTRIAXone IV Push 1 GM VIAL. IVP SCH (13:00)
--- NOTE | 2020-12-07 14:00 | NUR ---
Had medium formed brown stool. No c/o at this time. Cont. monitor.
[2020-12-07 15:00] VITALS: BP 124/60
--- NOTE | 2020-12-07 15:54 | CARD ---
MR#: [id number] Date of Study: 12/07/2020 Ordering Physician: RAPHAEL RODRIGUEZ, Referring Physician: RAPHAEL RODRIGUEZ Tech: Sonia Barnett [facility] APPROVED REPORT EXAM: Two-dimensional and M-mode echocardiogram with Doppler and color Doppler. Other Information Quality : AverageHR: 73bpm Rhythm : NSR INDICATION Chest Pain RISK FACTORS Hypertension 2D DIMENSIONS RVDd2.6 (2.9-3.5cm)Left Atrium(2D)3.4 (1.6-4.0cm) IVSd1.2 (0.7-1.1cm)Aortic Root(2D)3.6 (2.0-3.7cm) LVDd3.5 (3.9-5.9cm)LVOT Diameter2.1 (1.8-2.4cm) PWd1.2 (0.7-1.1cm)LVDs2.1 (2.5-4.0cm) FS (%) 40.8 %SV36.3 ml LVEF(%)72.6 (>50%) Aortic Valve AoV Peak Yeyo.141.1cm/sAoV VTI31.1cm AO Peak GR.8.0mmHgLVOT Peak Yeyo.108.3cm/s AO Mean GR.4mmHgAVA (VMAX)2.67cm2 Mitral Valve MV E Fansovvk04.6cm/sMV DECEL [id number] MV A Udlrnafr595.5cm/sE/A Ratio0.6 Pulmonary Valve PV Peak Azidiopp027.1cm/s Tricuspid Valve TR P. Odmdelpz439md/sTR Peak Gr.25mmHg LEFT VENTRICLE The left ventricle is normal size. There is mild concentric left ventricular hypertrophy. The left ve ntricular systolic function is normal. Estimated ejection fraction 55-60%. There is normal LV segmen fely wall motion. Transmitral Doppler flow pattern is Grade I-abnormal relaxation pattern. RIGHT VENTRICLE The right ventricle is normal size. There is normal right ventricular wall thickness. The right ventr icular systolic function is normal. ATRIA The left atrium size is normal. The right atrium size is normal. The interatrial septum is intact wit h no evidence for an atrial septal defect or patent foramen ovale as noted on 2-D or Doppler imaging. AORTIC VALVE The aortic valve is normal in structure and function. Doppler and Color Flow revealed no significant aortic regurgitation. There is no significant aortic valvular stenosis. MITRAL VALVE The mitral valve is normal in structure and function. There is no evidence of mitral valve prolapse. There is no mitral valve stenosis. Doppler and Color Flow revealed no mitral valve regurgitation note d. TRICUSPID VALVE The tricuspid valve is normal in structure and function. Doppler and Color Flow revealed trace tricus pid regurgitation. Estimated PAP 30 mmHg. There is no tricuspid valve stenosis. GREAT VESSELS The aortic root is borderline dialated. The IVC is normal in size and collapses >50% with inspiration . PERICARDIAL EFFUSION There is no evidence of significant pericardial effusion. Critical Notification Critical Value: No <Conclusion> The left ventricular systolic function is normal. Estimated ejection fraction 55-60%. There is normal LV segmental wall motion. Transmitral Doppler flow pattern is Grade I-abnormal relaxation pattern. Trace tricuspid regurgitation. Estimated PAP 30 mmHg. There is no evidence of significant pericardial effusion. Signed by : Ishaan Mullen, Electronically Approved : 12/07/2020 15:53:50
--- NOTE | 2020-12-07 16:50 | NUR ---
No c/o. Ambulating out hallway. Anxious to go home. No further c/o pain. Cont. monitor.
--- NOTE | 2020-12-07 17:47 | NUR ---
Discharge instructions given with prescription sent via electronic to pharmacy. Answered questions and concerns. Verbalized understanding. Pt ambulated to the car escorted out by staff.
[2020-12-07] MEDS ORDERED: LACTOBACILLUS RHAMNOSUS GG 1 CAPSULE. PO SCH (21:00)
[2020-12-08] MEDS ORDERED: PANTOPRAZOLE 40 MG TABLET.DR. PO SCH (07:30)
[2020-12-08] MEDS ORDERED: metFORMIN 500 MG TABLET PO SCH (12:00)
== END 2020-12-07 17:47 | disposition home or self-care (01) | DRG 392 ==
LOC: ER 10:27 → 2 NORTH 14:38
PROVIDERS: ADMIT Internal Medicine; ATTEND Internal Medicine
DX: K59.00 Constipation, unspecified (principal); K21.9 Gastro-esophageal reflux disease without esophagitis; E03.9 Hypothyroidism, unspecified; E11.9 Type 2 diabetes mellitus without complications; E78.00 Pure hypercholesterolemia, unspecified; E78.5 Hyperlipidemia, unspecified; G89.29 Other chronic pain; I10 Essential (primary) hypertension; J45.909 Unspecified asthma, uncomplicated; Z79.82 Long term (current) use of aspirin; Z87.891 Personal history of nicotine dependence; M19.90 Unspecified osteoarthritis, unspecified site; Z88.5 Allergy status to narcotic agent
CPT/HCPCS: 36415; 71045; 74177; 80053; 80061; 81001; 82962; 83690; 83880; 84443; 84484; 85025; 85379; 85610; 87086; 93005; 93306; 96361; 96374; 96375; 96376; 99285; J0696; J1815; J3010; J3490; J7030; Q9967; G0378

== ENCOUNTER 2021-06-13 13:47 | Emergency (ER) | payer MEDICARE, OTHER ==
[~2021-06-13] VITALS: Ht 165.1 cm; Wt 65.0 kg
[~2021-06-13 13:47] MED LIST changes: -ALBUTEROL SULFATE 2.5 MG/3 ML NEBU. NEB ONE; +ASPI81TA59 PO; +ATOR10TA PO; +DOCU-148 PO; +GABA300C18 PO; +INSU100V13 SQ; +LEVO-101 PO; +LOSA25TA PO; +METF10007 PO; +SITA100T PO; +VENTOLIN HFA18 GM INH
[2021-06-13 14:20] VITALS: BP 155/72
[2021-06-13] MEDS ORDERED: fentaNYL PF VIAL 100 MCG/2 ML VIAL IVP ONE (14:30)
[2021-06-13] MEDS ORDERED: FAMOTIDINE 20 MG/2 ML VIAL IVP ONE (14:30)
[2021-06-13] MEDS ORDERED: IV NORMAL SALINE 1000ML BAG 1,000 ML IV ONE (14:30)
[2021-06-13 14:33] LABS: BILIRUBIN,URINE NEGATIVE (NEG); CLARITY,URINE CLEAR; COLOR,URINE YELLOW; NITRITE,URINE NEGATIVE (NEG); PH,URINE 5.5 (<5.0-8.0); PROTEIN,URINE NEGATIVE (NEG-TRACE); UROBILINOGEN,URINE 0.2 mg/dL (0.2 mg/dL)
--- NOTE | 2021-06-13 14:40 | PHYS DOC ---
Past Medical History Past Medical History: Diverticulitis, High Cholesterol, Hypertension, IBS (SALMA PARKS José Manuel [employer]LECTIONS PROFESSION[employer]) Past Surgical History: Appendectomy, Cholecystectomy, Other Additional Past Surgical Histo: colon, hands (SALMA PARKS José [employer]LECTIONS PROFESSIONAL) Smoking Status: Never Smoker Alcohol Use: None (SALMA PARKS José Manuel [employer]LECTIONS PROFESSIONAL) General Adult EDM: Chief Complaint: DIARRHEA HPI: HPI: Patient is a 75 year old female with a history of hypertension, high cholesterol, cholecystectomy, diverticulitis, who presents to the ED today complaining of diarrhea that began 6 days ago. Patient is also complaining of right upper quadrant and generalized lower abdominal pain rated at 8 out of 10 described as sharp and intermittent, symptoms for the last 1 to 2 days. Denies any hematemesis or melena. Denies any fever. Denies being on any antibiotics. Denies anything specific and exacerbating or relieving her symptoms Patient is Montserratian-speaking and interpretation is provided by the daughter (ASLMA PARKS COLLECTIONS PROFESSIONAL) Review of Systems: Review of Systems: Constitutional: Denies fever or chills. [] Eyes: Denies change in visual acuity. [] HENT: Denies nasal congestion or sore throat. [] Respiratory: Denies cough or shortness of breath. [] Cardiovascular: Denies chest pain or edema. [] GI: Reports abdominal pain with diarrhea, denies nausea, vomiting, bloody stools : Denies dysuria. [] Musculoskeletal: Denies back pain or joint pain. [] Integument: Denies rash. [] Neurologic: Denies headache, focal weakness or sensory changes. [] Psychiatric: Denies depression or anxiety. [] (CAITLYNHannahSALMA José Manuel COLLECTIONS PROFESSIONAL) Heart Score: C/O Chest Pain: N/A Risk Factors: Risk Factors: DM, Current or recent (<one month) smoker, HTN, HLP, family history of CAD, obesity. Risk Scores: Score 0 - 3: 2.5% MACE over next 6 weeks - Discharge Home Score 4 - 6: 20.3% MACE over next 6 weeks - Admit for Clinical Observation Score 7 - 10: 72.7% MACE over next 6 weeks - Early Invasive Strategies (SALMA PARKS [employer]LE[employer] PROFESSIONAL) Current Medications: Current Medications Medications (Trade) Dose Ordered Sig/Mariam Start Time Stop Time Status Last Admin Dose Admin Famotidine (Pepcid Vial) 20 mg 1X ONCE 06/13/21 14:30 06/13/21 14:32 DC Fentanyl Citrate (Fentanyl 2ml Vial) 50 mcg 1X ONCE 06/13/21 14:30 06/13/21 14:32 DC Sodium Chloride 1,000 ml @ 1,000 mls/hr 1X ONCE 06/13/21 14:30 06/13/21 15:29 (SALMA PARKS APRN) Allergies: Allergies: Allergies Coded Allergies Type Severity Reaction Last Updated Verified codeine Adverse Reaction Severe Nausea/vomiting 12/07/20 Yes (SALMA PARKS APRN) Physical Exam: PE: Constitutional: Well developed, well nourished, no acute distress, non-toxic appearance. [] HENT: Normocephalic, atraumatic, bilateral external ears normal, oropharynx moist, no oral exudates, nose normal. [] Eyes: PERRLA, EOMI, conjunctiva normal, no discharge. [] Neck: Normal range of motion, no tenderness, supple, no stridor. [] Cardiovascular:Heart rate regular rhythm, no murmur [] Lungs & Thorax: Bilateral breath sounds clear to auscultation [] Abdomen: Bowel sounds normal, soft, tenderness diffusely on the right upper quadrant and mid abdomen, no right lower quadrant tenderness, no masses, no pulsatile masses. [] Skin: Warm, dry, no erythema, no rash. [] Back: No tenderness, no CVA tenderness. [] Extremities: No tenderness, no cyanosis, no clubbing, ROM intact, no edema. [] Neurologic: Alert and oriented X 3, normal motor function, normal sensory function, no focal deficits noted. [] Psychologic: Affect normal, judgement normal, mood normal. [] (SALMA PARKS APRN) EKG: EKG: [] (SALMA PARKS APRN) Radiology/Procedures: Radiology/Procedures: [] (SALMA PARKS APRN) Course & Med Decision Making: Course & Med Decision Making Pertinent Labs and Imaging studies reviewed. (See chart for details) This is a 75-year-old female patient presented to the ED today with diarrhea and abdominal pain. History of diverticulitis CBC CMP lipase with no acute findings. CT of the abdomen and pelvis noted for moderate constipation on the right side of the colon. Patient was given Dulcolax and mag citrate in the ED. Discharged with instructions to follow-up with the PCP in 1 week. Provided education on constipation prevention and management (SALMA PARKS APRN) Yudelka Disclaimer: Yudelka Disclaimer: This electronic medical record was generated, in whole or in part, using a voice recognition dictation system. (SALMA PARKS APRN) Departure Departure Impression: Primary Impression: Constipation Qualified Codes: K59.00 - Constipation, unspecified Disposition: HOME / SELF CARE / HOMELESS Condition: STABLE Referrals: ELIZABETH KUNZ D.O. (PCP) follow up in one week Patient Instructions: Constipation, Adult Additional Instructions: You were evaluated in the emergency room and noted to be constipated. Please increase your dietary fiber intake as well as water intake. Consider taking a walk every day. Consider taking magnesium citrate or milk of magnesium anytime you are constipated. Please follow-up with your doctor in 1 week Scripts Magnesium Citrate (MAGNESIUM CITRATE) 296 Ml Solution 296 ML PO ONCE, #296 ML Prov: SALMA PARKS APRN 06/13/21 Polyethylene Glycol 3350 (MIRALAX) 119 Gm Powder 17 GM PO DAILY for constipation, #527 GM 0 Refills dissolve in water Prov: SALMA PARKS APRN 06/13/21 Attending Signature I have participated in the care of this patient and I have reviewed and agree with all pertinent clinical information above including history, exam, and recommendations. (KYLE LOPEZ DO) SALMA PARKS APRN Jun 13, 2021 14:40 KYLE LOPEZ DO Jun 13, 2021 16:53
[2021-06-13 14:41] LABS: BACTERIA,URINE 0 /HPF (0-FEW); RBC,URINE 0 /HPF (0-2); WBC,URINE OCC /HPF (0-4)
[2021-06-13 14:42] LABS: BASO # 0.1 x10^3/uL (0.0-0.2); BASO % 1 % (0-3); EOS # 0.3 x10^3/uL (0.0-0.7); EOS % 4 % (0-3); HEMATOCRIT 38.9 % (36.0-47.0); HEMOGLOBIN 12.5 g/dL (12.0-15.5); LYMPH # 1.9 x10^3/uL (1.0-4.8); LYMPH % 23 % (24-48); MEAN CORPUSCULAR HEMOGLOBIN 27 pg (25-35); MEAN CORPUSCULAR HGB CONC 32 g/dL (31-37); MEAN CORPUSCULAR VOLUME 83 fL (79-100); MONO # 0.6 x10^3/uL (0.0-1.1); MONO % 7 % (0-9); NEUT # 5.4 x10^3/uL (1.8-7.7); NEUT % 66 % (31-73); PLATELET COUNT 256 x10^3/uL (140-400); RED BLOOD COUNT 4.71 x10^6/uL (3.50-5.40); RED CELL DISTRIBUTION WIDTH 17.1 % (11.5-14.5); WHITE BLOOD COUNT 8.3 x10^3/uL (4.0-11.0)
[2021-06-13 14:50] LABS: CALCIUM 8.9 mg/dL (8.5-10.1); CREATININE 0.9 mg/dL (0.6-1.0); GFR 61.4; POTASSIUM 4.2 mmol/L (3.5-5.1)
[2021-06-13 14:56] LABS: ALBUMIN 3.7 g/dL (3.4-5.0); ALBUMIN/GLOBULIN RATIO 0.9 (1.0-1.7); TOTAL BILIRUBIN 0.3 mg/dL (0.2-1.0); TOTAL PROTEIN 7.9 g/dL (6.4-8.2)
[2021-06-13] MEDS ORDERED: IOHEXOL 300 MG/ML 100ML VIAL. IV ONE (15:15)
[2021-06-13] MEDS ORDERED: CONTRAST GIVEN. MC PRN (15:15)
--- NOTE | 2021-06-13 15:38 | RAD ---
EXAM: CT Abdomen and Pelvis with IV contrast CLINICAL HISTORY: diarrhea hx of diverticulitis COMPARISON: 12/06/2020 TECHNIQUE: Helical CT of the abdomen and pelvis was performed following the administration of intrave nous contrast. Axial, coronal and sagittal reformatted images were generated. PQRS compliance statement - One or more of the following individualized dose reduction techniques wer e utilized for this study: 1. Automated exposure control 2. Adjustment of the mA and/or kV according to patient size 3. Use of iterative reconstruction technique FINDINGS: Lower Chest: Linear opacities lung bases likely scarring/atelectasis. Emphysematous changes are seen. Mitral calci fications are seen. Abdomen and Pelvis: Spleen, liver and adrenal glands are unremarkable. Cholecystectomy clips are seen. No biliary dilatat ion. Pancreas is unremarkable. Symmetric nephrograms. No focal renal lesion. No hydronephrosis. No hydronephrosis or hydroureter. Bl adder wall thickening may be seen with cystitis. Minimal stool is seen in the left colon and transverse colon. Moderate right colonic stool content is seen. Changes of partial sigmoid resection, stable in appearance. Uterus and adnexa are grossly unre markable. Aorta is normal in caliber. Atherosclerotic calcifications are seen. Mild infiltration overlying the ischial tuberosity bilaterally can be correlated with clinical examin ation as decubitus ulceration could have this appearance. Bones: Degenerative changes of spine are seen. No aggressive osseous lesion. IMPRESSION: 1. Moderate right colonic stool content. Minimal stool content in the left colon. 2. Changes of partial sigmoid resection. No CT evidence for acute diverticulitis. 3. Mild infiltration overlying the ischial tuberosity bilaterally can be correlated with clinical ex amination as decubitus ulceration could have this appearance. Electronically signed by: Hradik Aguayo MD (06/13/2021 3:35 PM) [facility]
[2021-06-13] MEDS ORDERED: BISACODYL 5 MG TABLET.DR. PO STA (15:41)
[2021-06-13] MEDS ORDERED: MAGNESIUM CITRATE 296 ML SOLUTION. PO ONE (15:45)
[2021-06-13] MEDS ORDERED: POLY119P4 PO (16:18)
[2021-06-13] MEDS ORDERED: MAGN296S68 PO (16:18)
== END 2021-06-13 16:24 | disposition home or self-care (01) ==
LOC: ER 13:47
DX: K59.00 Constipation, unspecified (principal); E78.00 Pure hypercholesterolemia, unspecified; I10 Essential (primary) hypertension; K58.9 Irritable bowel syndrome, unspecified; Z90.89 Acquired absence of other organs; Z90.49 Acquired absence of other specified parts of digestive tract; Z88.5 Allergy status to narcotic agent
CPT/HCPCS: 74177; 80053; 81001; 83690; 85025; 96361; 96374; 96375; 99285; J3010; J3490; J7030; Q9967

== ENCOUNTER → 2021-09-03 | Outpatient (CLI) | payer MEDICARE, OTHER ==
[~2021-09-03] MED LIST changes: +MAGN296S68 PO; +POLY119P4 PO; +REGADENOSON 0.4 MG/5 ML DISP.SYRIN. IV ONE
--- NOTE | 2021-09-04 08:27 | RAD ---
MR#: [id number] Date of Study: 09/03/2021 Ordering Physician: DEAN DODGE, Referring Physician: RAMA ATKINSON Tech: MATTEO Slaughter, ARRT (R) (N) APPROVED REPORT Test Type: Pharmacological Stress Nurse/Tech: Christina Armijo R.N. Test Indications: chest pain Cardiac History: asthma, htn, dm Medications: see ehr Medical History: see ehr Resting ECG: sr Resting Heart Rate: 78 bpm Resting Blood Pressure: 137/70mmHg Pretest Chest Pain: No chest pain Nurse/Tech Notes lungs cta, heart tones regular Consent: The procedure was explained to the patient in lay terms. Informed consent was witnessed. Jonathan eout was entered into foc.us. History and Stress Test performed by RT Ct (R) (N) Pharm. Details Pharmacologic stress testing was performed using 0.4mg per 5ml of regadenoson given intravenously ove r 7-10 seconds. Stress Symptoms Dyspnea, stomach upset. 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 pt c/o chest pain, resolved with recovery Arrhythmia: No. ST Change: No. INTERPRETATION Stress EKG Conclusion: No evidence of stress induced EKG changes. Imaging Protocol IMAGE PROTOCOL: Rest Tc-99m/stress Tc-99m 1 day Rest: Stress: Viability: Radiopharm.Tc99m [id number] Sestamibi Dose10.3mCi 30.7mCi Img Date 09/03/2021 09/03/2021 Inj-Img [id number]. 60min. Rest Admin Site:IV - Left AntecubitalAdministrator:RT Ct (Celestino)(N) Stress Admin Site: IV - Left AntecubitalAdministrator: RT Ct (R)(N) STRESS DATA End Diast. Vol.56.0mlAv. Heart Rate86.0bpm End Syst. Vol.10.0mlCO Index BSA0.0L/min Myocardial Mass96.0gEject. Izdyahdk05.0% Stress Rates Pk. Fill Rate4.49EDV/secLVtime Pk. Fill 193.50msec Pk. Empty Rate4.83ESV/secLVtime Pk. Kqbbu441.49msec 1/3 Pk. Fill0.45EDV/sec Stress Scores Regional WT0.00Summed WT0.00 Regional WM0.00Summed WM0.00 The rest and stress images show normal perfusion, normal contraction and thickening. LV Perf. Quant 17 Seg. SSS0.00 17 Seg. SRS0.00 17 Seg. SDS0.00 Stress Defect Extent (% LAD)0.00Rest Defect Extent (% LAD)0.00Rev. Defect Extent (% LAD)0.00 Stress Defect Extent (% LCX) 0.00Rest Defect Extent (% LCX)0.00Rev. Defect Extent (% LCX)0.00 Stress Defect Extent (% RCA)0.00Rest Defect Extent (% RCA)0.00Rev. Defect Extent (% RCA)0.00 Stress Defect Extent (% CHRISTIANO)0.00Rest Defect Extent (% CHRISTIANO)0.00Rev. Defect Extent (% CHRISTIANO)0.00 Other Information Quality:Average Risk Assessment: Low Risk Conclusion 1. No evidence of EKG changes with stress testing. 2. Normal perfusion at stress/rest. 3. Low risk study. 4. EF > 60%. Signed by : Mehrdad Pereira, Electronically Approved : 09/04/2021 08:26:37
== END ==
LOC: NM 08:50
PROVIDERS: ATTEND Internal Medicine Cardiovascular Disease
DX: R07.9 Chest pain, unspecified (principal)
CPT/HCPCS: 78452; 93017; A9500; J2785